=== PATIENT | female | born 1945 | race Caucasian/White ===

== ENCOUNTER 2018-02-25 12:50 | Emergency (ER) | payer MEDICARE, BC ==
--- NOTE | 2018-02-25 13:15 | EDM.PDOC ---
ED HPI GENERAL MEDICAL PROBLEM - General Chief Complaint: Eye Problems Stated Complaint: R/O STROKE Time Seen by Provider: 02/25/18 13:05 Source of Information: Reports: Patient History Limitations: Reports: No Limitations - History of Present Illness INITIAL COMMENTS - FREE TEXT/NARRATIVE: 73 yr female presents with vision changes since last night. States she has noticed blurred vision since last night and is not getting better. States she is supposed to have cataract surgery next month and she is hoping she can seen better then. States no pain to head, no temporal pain and no pain to eyes. No numbness, no weakness and no facial droop noted. Pt was seen in the outpatient clinic today and Pt was referred for vision check today with eye provider. Pt reports no changes noted with vision check. Ignition Specialist concerned of possible stroke and referred pt back for ER. Vision provider sent her notes over today with dianoses of homonymous hemianopia and amaurosis fugax of both eyes. vision cut to both eyes at 12 to 3 0'clock positions. No itchiness to eyes, no pain, states blurry vision. Pt is amubulatory, but is cautious to prevent any falls. BP is 185/77. Pt resting on ER cot and talking and in no acute distress. BP rechecked 175/79. - Related Data Allergies Allergy/AdvReac Type Severity Reaction Status Date / Time Sulfa (Sulfonamide Allergy Airway Verified 01/20/16 16:53 Antibiotics) Tightness Home Meds: Home Meds Fish Oil/Warren-3 Fatty Acids [Fish Oil 1,000 MG] 1 each PO DAILY 02/25/18 [ History] Naproxen 500 mg PO BID 02/25/18 [History] Past Medical History HEENT History: Reports: Cataract, Impaired Vision Gastrointestinal History: Reports: Diverticulosis Genitourinary History: Reports: Renal Calculus, Urinary Incontinence, UTI, Recurrent PROSTHETICS TECHNICIAN History: Reports: , Spontaneous Musculoskeletal History: Reports: Arthritis, Back Pain, Chronic, Osteoporosis Neurological History: Reports: Headaches, Chronic Endocrine/Metabolic History: Reports: Osteoporosis Dermatologic History: Reports: Benign Melanoma - Infectious Disease History Infectious Disease History: Reports: Chicken Pox, Influenza, Measles, Mumps, Pertussis (Whooping Cough), Shingles - Past Surgical History GI Surgical History: Reports: Colonoscopy, Small Bowel Musculoskeletal Surgical History: Reports: Carpal Tunnel, Shoulder Surgery Dermatological Surgical History: Reports: Skin Biopsy Social & Family History - Family History Family Medical History: Noncontributory ED ROS ENT - Review of Systems Review Of Systems: See Below Constitutional: Reports: No Symptoms HEENT: Reports: Glasses, Vision Change. Denies: Eye Pain Respiratory: Reports: No Symptoms Cardiovascular: Reports: Blood Pressure Problem. Denies: Chest Pain, Edema, Lightheadedness Endocrine: Reports: No Symptoms GI/Abdominal: Reports: No Symptoms : Reports: No Symptoms Musculoskeletal: Reports: No Symptoms Skin: Reports: No Symptoms Neurological: Reports: No Symptoms. Denies: Dizziness, Headache, Trouble Speaking, Change in Speech, Gait Disturbance ED EXAM, ENT - Physical Exam Exam: See Below Exam Limited By: No Limitations General Appearance: Alert, No Apparent Distress Eye Exam: Bilateral Eye: Vision Changes (peripheral vision better than forward vision) Ears: Hearing Grossly Normal. No: Hearing Loss Nose: Normal Inspection, Normal Mucousa Mouth/Throat: Normal Inspection, Normal Lips Head: Atraumatic, Normocephalic Neck: Normal Inspection, Supple, Non-Tender Respiratory/Chest: No Respiratory Distress, Lungs Clear, Normal Breath Sounds Cardiovascular: Regular Rate, Rhythm, No Edema GI/Abdominal: Normal Bowel Sounds, Soft, Non-Tender (Female) Exam: Deferred Rectal (Female) Exam: Deferred Back: Normal Inspection, Full Range of Motion Extremities: Normal Inspection, Normal Range of Motion, Non-Tender, No Pedal Edema Neurological: Alert, Oriented, Normal Cognition, No Motor/Sensory Deficits Psychiatric: Normal Affect, Normal Mood Skin: Warm, Dry, Normal Color Lymphatic: No Adenopathy Course - Vital Signs Last Recorded V/S: Last Vital Signs Temp 98 F 02/25/18 16:22 Pulse 81 02/25/18 16:22 Resp 18 02/25/18 16:22 BP 187/91 H 02/25/18 16:22 Pulse Ox 100 02/25/18 16:22 - Orders/Labs/Meds Orders: Active Orders 24 hr Category Date Time Status Saline Lock Insert [OM.PC] Routine Oth 02/25/18 13:20 Ordered Labs: Laboratory Tests 02/25/18 02/25/18 02/25/18 Range/Units 13:45 13:45 13:45 WBC 8.1 (4.0-11.0) K/uL RBC 4.70 (3.80-5.80) M/uL Hgb 14.1 (11.5-16.5) g/dL Hct 41.4 (37.0-47.0) % MCV 88 (76-96) fL MCH 30.0 (27.0-32.0) pg MCHC 34.1 (31.0-35.0) g/dL RDW 13.4 (11.0-16.0) % Plt Count 129 L (150-500) K/uL MPV 9.1 (6.0-10.0) fL Neut % (Auto) 70.1 H (45.0-70.0) % Lymph % (Auto) 21.6 (20.0-40.0) % [place] % (Auto) 7.0 (3.0-10.0) % Eos % (Auto) 0.9 L (1.0-5.0) % Baso % (Auto) 0.4 (0.0-0.5) % Neut # (Auto) 5.67 (2.00-7.50) K/uL Lymph # (Auto) 1.75 (1.50-4.00) K/uL [place] # (Auto) 0.57 (0.20-0.80) K/uL Eos # (Auto) 0.07 (0.04-0.40) K/uL Baso # (Auto) 0.03 (0.02-0.10) K/uL PT 9.4 (9.0-11.5) sec INR 0.9 L (1.0-3.5) Sodium 143 (136-145) mmol/L Potassium 4.2 (3.5-5.1) mmol/L Chloride 105 (98-107) mmol/L Carbon Dioxide 29.5 (21.0-32.0) mmol/L Anion Gap 12.7 (5.0-15.0) mmol/L BUN 21 (8-26) mg/dL Creatinine 0.85 (0.55-1.02) mg/dL Est Cr Clr Drug Dosing TNP Estimated GFR (MDRD) > 60 (>60) MLS/MIN BUN/Creatinine Ratio 24.7 (6-25) Glucose 88 (74-100) mg/dL Calcium 9.4 (8.5-10.1) mg/dL Meds: Medications Discontinued Medications Generic Name Dose Route Start Last Admin Trade Name Reg PRN Reason Stop Dose Admin Aspirin 324 mg 02/25/18 14:26 02/25/18 14:26 Aspirin PO 02/25/18 14:27 324 mg ONETIME ONE Administration Sodium Chloride 500 mls @ 500 drops/hr 02/25/18 13:21 02/25/18 13:45 Normal Saline IV 02/26/18 04:20 999 drops/hr .BOLUS ONE Administration Sodium Chloride 10 ml 02/25/18 13:20 02/25/18 13:45 Saline Flush FLUSH 10 ml ASDIRECTED PRN Administration Keep Vein Open - Re-Assessments/Exams Free Text/Narrative Re-Assessment/Exam: 02/25/18 18:[address] of head. Will order CBC, PT/INR and BMP to check on any electrolyte imbalance, WBC elevation, coagulation disorder, and kidney function. CT results reviewed with Dr Chanel MD on back-up for [employer] today. Recommend F/U with neurology for consult for pt. Lab results reviewed with slight decrease in Plt. CT shos subacute infarct of left occipital region and no intracranial hemorrhage. CT images to be sent to [facility] for review. TC with one call and discussed pt case with Dr Viramontes. States he will do a work-up with pt and transfer pt to [facility] and admit through ER. Discussed this with pt. Pt worried and unsure and wanted some time to discuss with family and friend, who brought her in today. Pt is worried about expense and would like to have a friend bring her to [facility], this is more than 170 [address] from [place]. Discussed this with ER curing supervisor and unsafe practice for the pt with possible further demise of possible CVA. With much discussion, pt states agreement with transfer via ambulance. Family will go get items from her house for her. IV Nacl started and fluid bolus ordered. ASA 324 mg PO given to pt at recommendation from neurologist. TC to [facility] and contacted hospitalist Dr Gonzales and is accepting of pt. Pt has been quiet and resting well. She was able to void without difficulty. Transfer to [facility], , [place]. Pt in no acute distress and in agreement with plan. Departure - Departure Time of Disposition: 16:15 Disposition: DC/Tfer to Acute Hospital 02 Condition: Good Clinical Impression: Occipital cerebral infarction, Amaurosis fugax, both eyes - Discharge Information Referrals: PCP,None [Primary Care Provider] - Forms: ED Department Discharge - My Orders Last 24 Hours: My Active Orders 02/25/18 13:20 Saline Lock Insert [OM.PC] Routine - Assessment/Plan Last 24 Hours: My Active Orders 02/25/18 13:20 Saline Lock Insert [OM.PC] Routine
[2018-02-25] MEDS: Sodium Chloride 0.9% 500 ML IV ONE (13:45)
[2018-02-25] MEDS: Sodium Chloride 0.9% 10 ML Syringe FLUSH PRN (13:45)
[2018-02-25] MEDS: Aspirin 81 MG Tab.Chew PO ONE (14:26)
--- NOTE | 2018-02-25 15:26 | CT ---
DATE OF SERVICE: 02/25/18 CLINICAL DATA: vision changes UNENHANCED BRAIN CT: No priors. There is diffuse cerebral atrophy. There are periventricular lucencies bilaterally, consistent with small vessel ischemic change. There are areas of encephalomalacia involving the left frontoparietal and the occipital regions bilaterally, consistent with prior infarct. There is another area of decreased attenuation in the left occipital lobe, suspicious for a subacute infarct. No intracranial hemorrhage. No masses or mass effect. IMPRESSION: 1. Abnormal exam. Findings consistent with subacute infarct left occipital region. 2. The patient's physician was notified of the finding by telephone and by virtual radiologic preliminary radiology report. [id number] [facility]
[2018-02-25 16:23] VITALS: BP 187/91
== END 2018-02-25 16:25 ==
LOC: LB.ED 12:50
DX: I63.9 Cerebral infarction, unspecified (principal); G45.3 Amaurosis fugax; Z88.2 Allergy status to sulfonamides
CPT/HCPCS: 36415; 70450; 80048; 85025; 85610; 96360; 99284-25; 99285; A0425; A0429; A9270-GY; J7040; J7050

== ENCOUNTER 2022-01-05 10:18 | Day surgery (SDC) | payer MEDICARE, BC ==
[~2022-01-05 10:18] MED LIST: Metoclopramide 10 MG/2 ML SDV IV PRN
[2022-01-05] MEDS: Sodium Chloride 0.9% 1,000 ML IV SCH (10:56)
[2022-01-05] MEDS ORDERED: Propofol 1,000 MG/100 ML SDV ONE (12:00)
[2022-01-05 12:35] VITALS: BP 152/83; PULSE 80
== END 2022-01-05 13:20 | disposition home or self-care (01) ==
LOC: LB.SDS 10:18
PROVIDERS: ATTEND Surgery
DX: Z12.11 Encounter for screening for malignant neoplasm of colon (principal); D12.3 Benign neoplasm of transverse colon; I48.91 Unspecified atrial fibrillation; I10 Essential (primary) hypertension
CPT/HCPCS: 82947; J2704; J7030

== ENCOUNTER 2023-06-30 11:24 | Emergency (ER) | payer MEDICARE, BC ==
[2023-06-30 12:01] LABS: BASOPHILS ABSOLUTE AUTO 0.02 K/uL (0.02-0.10); BASOPHILS PERCENT AUTO 0.2 % (0.0-0.5); HEMATOCRIT 44.3 % (37.0-47.0); HEMOGLOBIN 15.2 g/dL (11.5-16.5); LYMPHOCYTES ABSOLUTE AUTO 0.79 K/uL (1.50-4.00); LYMPHOCYTES PERCENT AUTO 7.9 % (20.0-40.0); MEAN CORPUSCULAR HGB CONC 34.3 g/dL (31.0-35.0); MEAN CORPUSCULAR VOLUME 90 fL (76-96); MEAN PLATELET VOLUME 9.1 fL (6.0-10.0); NEUTROPHILS ABSOLUTE AUTO 8.64 K/uL (2.00-7.50); NEUTROPHILS PERCENT AUTO 85.9 % (45.0-70.0); PLATELET COUNT,PLT 146 K/uL (150-500); RED BLOOD CELL COUNT 4.91 M/uL (3.80-5.80); RED CELL DISTRIBUTION WIDTH 13.4 % (11.0-16.0); WHITE BLOOD CELL COUNT,WBC 10.1 K/uL (4.0-11.0)
[2023-06-30 12:20] LABS: INR 1.1 (1.0-3.5); PTT,PARTIAL THROMBOPLSTIN TIME 27.4 SECONDS (24.4-33.2)
[2023-06-30 12:21] LABS: A/G RATIO 0.9 (0.8-2.0); ALBUMIN 3.8 g/dL (3.4-5.0); ANION GAP 12.7 mmol/L (5.0-15.0); BILIRUBIN TOTAL 1.1 mg/dL (0.0-1.0); BUN/CREATININE RATIO 20.3 (6-25); CALCIUM 9.5 mg/dL (8.5-10.1); CARBON DIOXIDE,CO2 26.3 mmol/L (21.0-32.0); CREATININE 1.28 mg/dL (0.55-1.02); EST CRCL DRUG DOSING (CG) 32.07 mL/min; PROTEIN TOTAL,TP 8.1 g/dL (6.4-8.2)
[2023-06-30 12:22] LABS: PROTHROMBIN TIME 11.8 sec (9.0-11.5)
[2023-06-30 13:30] VITALS: BP 137/87; PULSE 100
== END 2023-06-30 12:52 | disposition home or self-care (01) ==
LOC: LB.ED 11:24
DX: G45.9 Transient cerebral ischemic attack, unspecified (principal); I10 Essential (primary) hypertension; E78.00 Pure hypercholesterolemia, unspecified; E11.9 Type 2 diabetes mellitus without complications; Z79.84 Long term (current) use of oral hypoglycemic drugs; Z79.01 Long term (current) use of anticoagulants; Z79.899 Other long term (current) drug therapy; Z88.2 Allergy status to sulfonamides; Z87.891 Personal history of nicotine dependence
CPT/HCPCS: 36415; 70450; 80053; 82947; 84484; 85025; 85610; 85730; 93005; 99285